=== PATIENT | female | born 1990 | race Caucasian/White ===

== ENCOUNTER 2018-08-08 18:36 | Day surgery (SDC) | payer SELFPAY ==
[2018-08-08 19:11] VITALS: BP 130/80; TEMP 99; BMI 31.7
[2018-08-08 19:59] LABS: Amnisure Internal Control QC ACCEPTABLE (ACCEPTABLE); Amnisure Test No Membranes Rupture (No Rupture)
--- NOTE | 2018-08-08 20:43 | PDOC.LDHP ---
Labor and Delivery H&P Chief complaint: contractions, loss of fluid, decreased movement HPI: 28 y/o at 40w0d presents for a checkup. She has not been seen since 34 weeks after a disagreement with [facility] office staff. Her biggest complaint is pelvic pressure, especially with activity. She reports she has felt the baby's hiccups today but movement was slower than usual. She has also had some irregular contractions and increased discharge but doesn't think she's in labor. She wants to know if she can be induced today. ROS neg for HEENT, cv, pulm, gi, gu, neuro, psych, skin, musculoskeletal, or constitutional symptoms other than mentioned above. OB History Details: 1 prior term after induction at 39 weeks. Weight 9+ lbs. Current complications: other (no PNC since 34 weeks) Past Medical History: None Current medications: pre- vitamins Previous surgical history: other ([place] teeth extraction) Allergies/Adverse Reactions: Allergies Allergy/AdvReac Type Severity Reaction Status Date / Time azithromycin Allergy Intermediate Hives Verified 08/08/18 19:05 penicillin G Allergy Intermediate Hives Verified 08/08/18 19:05 Social history: none - Physical Exam Vital signs reviewed and normal: yes General: NAD, resting Lungs: nonlabored breathing Abdomen: gravid Extremeties: pitting edema (1+) FHT: category 1 (130s, mod variability, + accels, no decels) [place] contractions every: irregular - Vaginal Exam cm dilated: 3 Effacement: 25% Station: -3 - Assessment 28 y/o at 40w0d with no e/o active labor or SROM. status reassuring with reactive NST. - Plan -: Encouraged to be seen in clinic but if she is not seen, I recommend she return in 1 week if still for evaluation of fetus (at 41 weeks). D/c home with strict precautions. GBS done and pending (PCN allergic).
== END 2018-08-08 20:30 | disposition home or self-care (01) ==
LOC: L&D/OP 18:36
PROVIDERS: ATTEND Obstetrics & Gynecology
DX: O47.1 False labor at or after 37 completed weeks of gestation (principal); O36.8130 Decreased fetal movements, third trimester, not applicable or unspecified; Z3A.40 40 weeks gestation of pregnancy
CPT/HCPCS: 84112; 87081; 87480; 87510; 87660; 99284

== ENCOUNTER 2018-08-15 12:23 | Day surgery (SDC) | payer SELFPAY ==
--- NOTE | 2018-08-15 13:10 | PDOC.FPROB ---
FMR OB H&P: HPI - History of Present Illness Chief Complaint: Told to come in because late term Indentification: 28 year old History of Present Illness: 28 year old at 41.0 wks by 1T u/s with BRET of 08/08/2018 presents with contractions which have now resolved. She states that yesterday around 11:30 pm the contractions were intense enough to keep her from sleeping. They were regular and happening every few minutes. This went on for about 12 hours. Since that time, the contractions have resolved. Patient states she has few irregular contractions currently. She denies vaginal bleeding, LoF. Patient endorses vaginal discharge that is milky white without any changes in since last week when she was checked by Dr. Landis for ruptured membranes. Patient states that she was told to come back today as she would be 41 wks. She has poor PNC. She saw Dr. William up until 34 weeks and then stopped seeing her. Primary Care Physician: CARL FMR OB H&P: Current - Care : 2 Para: 1001 Gestational age: 41.0 wks Due date: 08/08/2018 Dating Criteria: 1T u/s - OB Labs Blood type: A RH: negative Antibody Screen: negative HIV: negative RPR: negative HepBsAg: negative Rubella: immune GBS: negative FMR OB H&P: History - Past Medical History PMH: None - OB History OB History: Rh negative s/p rhogam on 03/11/2018 Poor PNC - Surgical History Sx History: [place] teeth - Family History Family History: Mother and father with HTN FMR OB H&P: Medications - Current Home Medications: Medication Instructions Recorded Confirmed Type Vit,Calc76/Iron/Folic 1 tablet PO DAILY 08/08/18 08/15/18 History [Pnv 29-1 Tablet] Ferrous Sulfate 325 mg PO DAILY 08/15/18 08/15/18 History Allergies/Adverse Reactions: Allergies Allergy/AdvReac Type Severity Reaction Status Date / Time azithromycin Allergy Intermediate Hives Verified 08/08/18 19:05 penicillin G Allergy Intermediate Hives Verified 08/08/18 19:05 FMR OB H&P: ROS - Review of Systems General: denies: fever/chills, weight/appetite/sleep changes, fatigue Eyes: denies: vision changes, scotomas ENT: denies: nasal congestion, rhinorrhea, sore throat Cardiovascular: denies: chest pain, palpitation, edema Respiratory: denies: cough, congestion, shortness of breath Gastrointestinal: denies: abdominal pain, cramping, nausea, vomiting, diarrhea, constipation Genitourinary (Female): reports: polyuria, vaginal discharge, contractions. denies: incontinence, dysuria, vaginal pain, vaginal bleeding, vaginal pressure Musculoskeletal: denies: pain Neurologic: denies: syncope, weakness, loss of counsciousness Hematologic/Lymphatic: denies: prolonged or excessive bleeding Psychological: denies: depression, anxiety FMR OB H&P: Vital Signs - Maternal Vital signs: BP 133/89 Pulse 103 Temp 98.6 F - Heart Tones Baseline: 140 Variability: moderate Acceleration: present Deceleration: absent Category: category 1 [place] contractions every: Irregular FMR OB H&P: Physical Exam - Physical Exam General: NAD HEENT: MMM, grossly normal vision, grossly normal hearing Neck: supple Heart: pulses present Deviation from normal: trace edema General: no respiratory distress Abdomen: soft, gravid, non-tender Musculoskeletal: pulses present Neurological: no tremor, no focal deficit Skin: no rash, capillary refill <2 seconds Lymphatic: no unusual bruising or bleeding Psychiatric: intact recent and remote memory, good judgement and insight, normal mood and affect FMR OB H&P: A/P - Problem List (1) Intrauterine Current Visit: Yes Status: Acute Code(s): Z34.90 - ENCNTR FOR SUPRVSN OF NORMAL , UNSP, UNSP TRIMESTER Assessment and Plan: 28 year old at 41 wks presents with contractions onset of yesterday which have since resolved. She resides in [place]. 1. Late term sIUP - Poor PNC; no care after 34 weeks - No complications in this per patient - Last cervical check last week was 01/27/-3; no change today - Few irregular contractions on monitor - Reactive NST - Will schedule induction with Pit 08/16/18 at 07:00; staffing issue currently and no evidence of labor/ jeopardy 2. Rhogam negative - S/p rhogam on 03/11/2018 Disposition: Stable. Consider d/c if not in active labor to come back for induction tomorrow Discussion: Date/Time: 08/15/18 2855 This H&P was discussed with Dr. Tarango who agrees with the above documentation and plan. OB Faculty note: Seen at beside, see handwritten note and dictation Signature: Vanda Nagel, PGY-2
[2018-08-15 13:11] VITALS: BP 124/75; TEMP 98.6; BMI 31.7
--- NOTE | 2018-08-15 14:06 | HP ---
DATE OF ADMISSION: 08/15/2018 TIME OF EVALUATION: 13:20 to 13:35. LOCATION: Labor and Delivery. This is a patient of Dr. William up until about 34 weeks and then she has not had care since about that time. EGA: 41.0. HISTORY OF PRESENT ILLNESS: In brief, this is a patient who was first evaluated by our resident team montessori teacher who evaluated the patient who arrived after the instructions from Dr. Michelle Landis to [facility] at 41 weeks and 0 days for possible induction to Labor and Delivery. She arrived here without any vaginal bleeding and some irregular contractions early in the morning at around 2:00 a.m., but they h ave since decreased. No history of vaginal bleeding and no leakage of fluid. There is no history of trauma or other complications. Once again, she has been seen by Dr. William up until about 34 weeks, but has not been seen by her since. She had a GBS drawn last time, which was negative. OB HISTORY: She has a prior vaginal delivery. Dating criteria is by first trimester ultrasound. LAB WORK: She is Rh negative and she received RhoGAM as indicated. PAST MEDICAL HISTORY: Negative. PAST SURGICAL HISTORY: [place] teeth. MEDICATIONS: vitamins. ALLERGIES: PENICILLIN and ZITHROMAX, which makes her "swell up." Also hives is reported. PHYSICAL EXAMINATION: VITAL SIGNS: Her first blood pressure was 133/89, but repeated was with systolic pressures of 120s w ith diastolics in the 70s. Pulse is 103 and she is afebrile. GENERAL: She is in no acute distress. ABDOMEN: Size consistent. On cervical examination, she is 3 cm dilated, only about 30% effaced and about -2 station. There is no gross evidence of vaginal bleeding or ruptured membranes. On monitor, she has a reactive nonstress test with moderate variability noted. There are irreg ular contractions and few contractions on tocodynamometer. ASSESSMENT: This is a patient who is a G2, P1 at 41 weeks and 0 days by sure dates who arrived to [facility] and Delivery for an attempt at induction. No evidence of true labor at this time and she has not made cervical change from her last evaluation, which is 3 cm at last check. PLAN: 1. Please note that this patient has a handwritten H and P also in the chart and this dictation is a ncillary. I evaluated the patient at bedside along with Dr. Vanda Nagel with the [facility]. 2. As the patient is not actively laboring, with a reactive nonstress test and no evidence of hypert ensive abnormality, I discussed with the patient the ability to bring her back tomorrow on 08/16/2018 for a trial of induction in the morning (Pitocin). 3. The plan for induction tomorrow morning is due to limited staffing and availability in Labor and Delivery today (1 free bed on the unit today). 4. I have discussed this with our nurse management team (Adrienne) and we are all in agreement that as t here is no acute need for intervention, the patient is likely low risk to continue until tomorrow, bu t we will attempt a trial of induction. 5. I have added her into the induction book for record and she is scheduled for tomorrow morning. 6. I have advised the patient that if she has increasing contractions, decreased movement, vag inal bleeding or evidence of rupture, then she needs to return and we will have availability to see h er as at that point it would no longer be an elective admission, but will be medically indicated due to spontaneous onset of labor. 7. No acute complication at this time. 8. Questions answered.
== END 2018-08-15 14:00 | disposition home or self-care (01) ==
LOC: L&D/OP 12:23
PROVIDERS: ATTEND Obstetrics & Gynecology
DX: O47.1 False labor at or after 37 completed weeks of gestation (principal); O48.0 Post-term pregnancy; Z3A.41 41 weeks gestation of pregnancy; Z88.0 Allergy status to penicillin; Z88.1 Allergy status to other antibiotic agents
CPT/HCPCS: 99282

== ENCOUNTER 2018-08-16 07:24 | Inpatient (IN) | payer OTHER, SELFPAY ==
[2018-08-16] MEDS ORDERED: Butorphanol Tartrate 1 MG/ML VIAL SLOW IVP PRN (07:53)
[2018-08-16] MEDS ORDERED: NS / Oxytocin 40 units/1000ml 1,000 ML IV PRN (07:53)
[2018-08-16] MEDS ORDERED: Ibuprofen 800 MG TAB PO PRN (07:53)
[2018-08-16] MEDS ORDERED: Promethazine HCl 25 MG/ML VIAL IM PRN ×2 (07:53→13:50)
[2018-08-16] MEDS ORDERED: Lidocaine 1% (PF) 30 ML VIAL SC PRN (07:53)
[2018-08-16] MEDS ORDERED: HYDROcodone/Acetaminophen 5/325 mg Tablet PO PRN ×2 (07:53)
[2018-08-16] MEDS ORDERED: NS w/ Oxytocin 10 units 500 ML IV SCH (08:00)
[2018-08-16] MEDS: Lactated Ringer's 1,000 ML IV SCH ×2 (08:12→12:52)
[2018-08-16 08:46] LABS: Mean Corpuscular HGB CONC 34.7 g/dL (32.0-36.0); Mean Corpuscular Hemoglobin 32.1 pg (27.0-31.0); Mean Corpuscular Volume 92.5 fL (78.0-98.0); Mean Platelet Volume 9.1 fL (7.4-10.4); Platelet Count 163 thou/uL (130-400); Red Blood Cell (RBC) Count 3.75 mill/uL (4.20-5.40); White Blood Cell (WBC) Count 8.7 thou/uL (4.8-10.8)
[2018-08-16 08:56] VITALS: BMI 31.7
--- NOTE | 2018-08-16 08:57 | HP ---
DATE OF ADMISSION: 08/16/2018 LOCATION: Labor and Delivery TIME OF EVALUATION: 0757. REASON FOR ARRIVAL: This patient arrives in Labor and Delivery for scheduled induction of labor. HISTORY OF PRESENT ILLNESS: In brief, this is a patient that was evaluated in Labor and Delivery yes terday dated 08/15/2018. When she presented in Labor and Delivery for induction, although she was no t officially scheduled for induction. Due to staffing issues (full labor and delivery unit) she was scheduled this morning for Pitocin. In brief, she is a 28-year-old G2, P1 at 41 weeks by first trim daniel ultrasound with a due date of 08/08/2018, who presents with irregular contractions. She was ev aluated yesterday and found to be 3 cm dilated, which is basically unchanged from her previous admiss ion. She was observed in Labor and Delivery yesterday and told to return today due to staffing and n ow presents herself for induction. She was seen by Dr. William previously until 34 weeks, but then st opped seeing her from that point forward. PAST MEDICAL HISTORY: Otherwise, negative. OB HISTORY: She has had a prior vaginal delivery. PAST SURGICAL HISTORY: [place] teeth. PHYSICAL EXAMINATION: VITAL SIGNS: Stable and she is afebrile. She is normotensive. GENERAL: Clinically, she is in no acute distress. ABDOMEN: Soft and nontender. Size is consistent with dates on the uterine exam. Estimated we ight about 6-1/2 pounds. CERVICAL EXAM: Pending as the patient just arrived in Labor and Delivery, and we will do a cervical exam once she is fully admitted and prepared for the exam. On monitor, heart tones are reactive in the 130s to 140s. Irregular contractions and irr itability on tocodynamometer. ASSESSMENT: This is a patient who is a 2, para 1 at 41 weeks and 1 day who presents for sche duled induction of labor for Pitocin. Once again, she was seen yesterday, but due to staffing issues , was brought back this morning for scheduled induction. PLAN: 1. Pitocin induction per protocol. 2. Pain medications per routine. 3. Confirm GBS status. 4. Await labor progress. 5. CREDIT UNION FIELD EXAMINER Hospitalist team to assume care as the patient has not seen her regular provider since 34 weeks. 6. Once again for full details on the first evaluation dated on 08/15/2018, please turn to that dict ation dated that date.
[2018-08-16 09:39] LABS: Syphilis Antibody Nonreactive (Nonreactive); Syphilis Antibody Index 0.05 S/CO (<1.00 Non-Reactive)
[2018-08-16 09:39] LABS: HBSAg Index 0.18 S/CO (0-0.99); HIV (1/2) Antibody/Antigen Non-Reactive (NonReactive); HIV 1/2 INDEX 0.12 S/CO (<1.00); Hep B Surf Ag Non-Reactive S/CO (NonReactive)
[2018-08-16] MEDS ORDERED: Fentanyl 4 mcg/Bup 0.1% Cadd 100 ML ONE (12:14)
[2018-08-16] MEDS ORDERED: Eucerin (Mineral Oil/Petrolatum,White) 30 gm Jar TOP PRN (13:50)
[2018-08-16] MEDS ORDERED: Ondansetron HCl/PF 4 MG/2 ML Vial IVP PRN ×2 (13:50→18:21)
[2018-08-16] MEDS ORDERED: ePHEDrine/0.9% NaCl/PF SYRINGE 50 mg/10 ml SLOW IVP PRN (13:50)
[2018-08-16] MEDS ORDERED: Naloxone HCl 0.4 mg/ml Vial IVP PRN ×2 (13:50)
[2018-08-16] MEDS ORDERED: diphenhydrAMINE 50 MG/ML VIAL IVP PRN (13:50)
[2018-08-16] MEDS ORDERED: Lactated Ringer's 500 ML IV PRN (13:50)
[2018-08-16] MEDS ORDERED: Acetaminophen 325 MG TAB PO PRN (13:50)
[2018-08-16] MEDS ORDERED: Communication Order-Pharmacy FS SCH (14:00)
[2018-08-16] MEDS ORDERED: Fentanyl 4 mcg/Bupivacaine 0.1% Cassette 100 ML EPIDURAL SCH (14:00)
[2018-08-16] MEDS ORDERED: Lidocaine 2% MPF 10 ML AMP (For Epidural Use) ONE (15:00)
[2018-08-16] MEDS ORDERED: Lanolin Ointment 7 GM TUBE TOP PRN (18:21)
[2018-08-16] MEDS ORDERED: Benzocaine/Menthol 20-0.5% 60 ML CAN TOP PRN (18:21)
[2018-08-16] MEDS ORDERED: NS / Oxytocin 40 units/1000ml 1,000 ML IV SCH (18:21)
[2018-08-16] MEDS ORDERED: Bisacodyl 10 MG SUPP PR PRN (18:21)
[2018-08-16] MEDS ORDERED: Milk Of Magnesia 30 ML UDCUP PO PRN (18:21)
[2018-08-16] MEDS ORDERED: Preparation H Ointment 28 GM TUBE PR PRN (18:21)
[2018-08-16] MEDS: Docusate Calcium (SURFAK) 240 MG CAP PO SCH (21:52)
[2018-08-16] MEDS: Ibuprofen 800 MG TAB PO SCH (21:52)
[2018-08-17] MEDS: Ibuprofen 800 MG TAB PO SCH ×3 (06:13→21:56)
--- NOTE | 2018-08-17 07:23 | PDOC.OPDEL ---
OB Operative/Delivery Note Delivery Dr/Surgeon: Jerrell Nagel Pre-Delivery Diagnosis: elective induction Procedure/Post Delivery Dx: spontaneous vaginal delivery Weeks gestation: 41 (41.1 wks) Anesthesia: epidural - Findings A Sex: male - 1 min: 9 - 5 min: 9 - Additional Findings/Plan Placenta delivered: spontaneous Repaired Obstetrical Laceration: vaginal (hemostatic right vaginal laceration) Estimated blood loss: QBL 459 mL Compilations/Other Findings: Delivering Physician: Shona Attending: Jerrell Procedure: Spontaneous Vaginal Delivery Anesthesia: Epidural Pre-op Diagnosis: 1. Late-term intrauterine in labor 2. Rh negative s/p rhogam on 03/11/2018 Post-op Diagnosis: 1. Term intrauterine , delivered 2. same as above Indications: A 28 y/o female presented to L&D for IOL for late-term at 41.1 wks Delivery Note: This is 28 yo F @ 41.1 wks who delivered a viable M infant at 16:02 on 08/16/2018. Following an uneventful antepartum course, a vigorous male was delivered over an intact perineum in the occipitoanterior position. Anterior shoulder and then remainder of the body delivered. No nuchal cord. The head was held down and mouth and nares were bulb suctioned. Cord clamped and cut and cord blood collected. Placenta delivered intact with a 3 vessel cord noted. Fundal massage was performed and the fundus was firm. The cervix and vagina were inspected and a hemostatic right vaginal side wall lesion was noted. No repair was necessary. There was a left periurethral abrasion. went to nursery in good condition for routine care. Apgars were 9/9 at 1 & 5 minutes, respectively. Patient tolerated delivery well and went to after routine recovery/care. Post delivery plan: routine recovery
--- NOTE | 2018-08-17 07:28 | PDOC.PP ---
Post Progress Note Post Day #: 1 Subjective: Patient doing well this AM. No significant overnight events. Patient tolerating PO and ambulating without difficulty. PO intake tolerated: yes Flatus: yes Ambulation: yes Vital Signs (12 hours) Temp Pulse Resp BP Pulse Ox 08/17/18 04:14 97.9 F 79 18 124/62 08/17/18 02:20 97.7 F 78 18 136/60 97 08/16/18 20:53 98.2 F 100 18 127/68 98 Weight Weight 94.801 kg - Physical Examination General: NAD Respiratory: non-labored breathing Abdominal: lochia (scant this morning. Several blood clots expressed yesterday.) Fundus firm & at: 2 cm above umbilicus Skin: no rash Neurological: no gross focal deficits Psychiatric: A&Ox3, normal affect Result Diagrams: 08/16/18 08:23 Additional Labs: Post Labs Blood Type A POSITIVE 08/16/18 14:20 Hep Bs Antigen Non-Reactive S/CO (NonReactive) 08/16/18 08:44 (1) Vaginal delivery Code(s): O80 - ENCOUNTER FOR FULL-TERM UNCOMPLICATED DELIVERY Status: Acute - Assessment/Plan 28 year old at 41.1 wks delivered LGA on 08/16/2018 via . 1. Late term , delivered - - One hemostatic vaginal laceration on right not requiring repair - Question whether or not Rh negative. Has been in past pregnancies but blood type and screen twice during this hospitalization shows Rh positive. Will call blood bank and try to figure out false positive rate. Will still give patient rhogam PP as she plans on having more children and current is Rh positive. Patient concerned since she knows she has had blood work in the past that confirms Rh negative status - Pending rhogam and 24 hour bili for baby, will consider 24 hour discharge. - Pending entry level sales consultant Dispo: Stable. Possible d/c today. <Vanda Nagel - Last Filed: 08/17/18 07:26> Vital Signs (12 hours) Temp Pulse Resp BP Pulse Ox 08/17/18 04:14 97.9 F 79 18 124/62 08/17/18 02:20 97.7 F 78 18 136/60 97 08/16/18 20:53 98.2 F 100 18 127/68 98 Weight Weight 209 lb Result Diagrams: 08/16/18 08:23 Additional Labs: Post Labs Blood Type A POSITIVE 08/16/18 14:20 Hep Bs Antigen Non-Reactive S/CO (NonReactive) 08/16/18 08:44 <Osvaldo Allan - Last Filed: 08/17/18 08:41> Attending Addendum - Attending Addendum Date/Time: 08/17/18 0841 I personally evaluated the patient and discussed the management with Dr. Nagel I agree with the History, Examination, Assessment and Plan documented above with any addition or exceptions noted below. will need Rhogam before discharge. <Osvaldo Allan - Last Filed: 08/17/18 08:41>
[2018-08-17] MEDS: Docusate Calcium (SURFAK) 240 MG CAP PO SCH ×2 (08:55→21:56)
[2018-08-17] MEDS: Prenatal Vitamin 1 TAB PO SCH (08:55)
[2018-08-17] MEDS ORDERED: Adacel (T-DAP) 0.5 ML VIAL IM ONE (09:00)
--- NOTE | 2018-08-17 09:21 | PDOC.EVN ---
Event Note - Event Note Event Note: Technical Trainer note: Blood type note: Updated on RH status. Here, patient is RH pos...but on record, was RH negative in care. This may be a weak D (Du) pos that is identified. ACOG states she should be treated as RH negative in this case and administer Rhogam. Patient desires rhogam.
[2018-08-17] MEDS: Ferrous Sulfate 325 MG TAB PO SCH ×2 (10:17→17:29)
[2018-08-18] MEDS: Ibuprofen 800 MG TAB PO SCH (06:06)
--- NOTE | 2018-08-18 06:42 | PDOC.PP ---
Post Progress Note Post Day #: 2 Subjective: Doing well PO intake tolerated: yes Flatus: yes Ambulation: yes Vital Signs (12 hours) Temp Pulse Resp BP Pulse Ox 08/17/18 19:42 98.2 F 93 18 137/59 L 97 Weight Weight 209 lb - Physical Examination General: NAD Cardiovascular: no m/r/g Respiratory: clear to auscultation bilaterally Abdominal: + bowel sounds, lochia, no distention Extremities: negative homans (B) Neurological: no gross focal deficits Psychiatric: A&Ox3, normal affect Result Diagrams: 08/16/18 08:23 Additional Labs: Post Labs Blood Type A POSITIVE 08/16/18 14:20 Hep Bs Antigen Non-Reactive S/CO (NonReactive) 08/16/18 08:44 (1) Vaginal delivery Code(s): O80 - ENCOUNTER FOR FULL-TERM UNCOMPLICATED DELIVERY Status: Acute - Assessment/Plan PPD 2: Doing well. Patient with blood type of RH negative but RH pos here. Rhogam given for conservative care. Likely home today as stable on PPD2. F/U in 3 weeks
[2018-08-18 08:10] VITALS: BP 131/63; TEMP 97.5
[2018-08-18] MEDS: Prenatal Vitamin 1 TAB PO SCH (08:12)
[2018-08-18] MEDS: Ferrous Sulfate 325 MG TAB PO SCH (08:12)
[2018-08-18] MEDS: Docusate Calcium (SURFAK) 240 MG CAP PO SCH (08:12)
== END 2018-08-18 12:20 | disposition home or self-care (01) | DRG 806 ==
LOC: L&D 07:24 → 3SE 20:53
PROVIDERS: ADMIT Obstetrics & Gynecology; ATTEND Obstetrics & Gynecology
PROC: 3E033VJ Introduction of Other Hormone into Peripheral Vein, Percutaneous Approach (ICD-10-PCS; principal; 2018-08-16)
PROC: 10E0XZZ Delivery of Products of Conception, External Approach (ICD-10-PCS; 2018-08-16)
DX: O48.0 Post-term pregnancy (principal); O71.4 Obstetric high vaginal laceration alone; Z37.0 Single live birth; Z3A.41 41 weeks gestation of pregnancy
CPT/HCPCS: 36415; 51702; 85027; 86780; 86850; 86900; 86901; 87340; 87389; 90384; 96372; J2001; J2405

== ENCOUNTER 2019-12-06 10:09 | Inpatient (IN) | payer OTHER ==
[2019-12-06 10:47] VITALS: BMI 34.4
[2019-12-06] MEDS: Lactated Ringer's 1,000 ML IV SCH ×2 (10:50→12:17)
[2019-12-06] MEDS ORDERED: Misoprostol 200 MCG TAB PR PRN (11:19)
[2019-12-06] MEDS ORDERED: Ibuprofen 800 MG TAB PO PRN (11:19)
[2019-12-06] MEDS ORDERED: HYDROcodone/Acetaminophen 5/325 mg Tablet PO PRN ×4 (11:19→19:13)
[2019-12-06] MEDS ORDERED: Butorphanol Tartrate 1 MG/ML VIAL SLOW IVP PRN (11:19)
[2019-12-06] MEDS ORDERED: Promethazine HCl 25 MG/ML VIAL IM PRN ×2 (11:19→19:13)
[2019-12-06] MEDS ORDERED: NS / Oxytocin 40 units/1000ml 1,000 ML IV PRN (11:19)
[2019-12-06] MEDS ORDERED: Ondansetron PF 4 MG/2 ML Vial IVP PRN ×2 (11:19→19:13)
[2019-12-06] MEDS ORDERED: Carboprost 250 MCG/ML AMP IM PRN (11:19)
[2019-12-06] MEDS ORDERED: Diphenoxylate HCl/Atropine Tablet PO PRN ×2 (11:19)
[2019-12-06] MEDS ORDERED: hydrALAZINE 20 MG/ML VIAL SLOW IVP PRN ×2 (11:19→19:13)
[2019-12-06] MEDS ORDERED: Lidocaine 1% (PF) 30 ML VIAL SC PRN (11:19)
--- NOTE | 2019-12-06 11:26 | PDOC.LDHP ---
Labor and Delivery H&P HPI: 29 y/o at 38 and 5/7 weeks who presents to clinic noting painful CTXs at home x 2 days. Cervix went form 2cm/30% to 5CM/70% over the last week. Her BP in clinic 142/90. BMI today 35.5 (Obesity in ). NL sugar testing. Hx of 10 pound previous baby. weight was 8# 14 oz one week ago - LGA Fetus suspected now over 9 pounds. Hx of hemorrhage reported with [place] [facility] physicians last time. Current gestational age (weeks): 38 Due date: 12/15/19 Grav: 3 Para: 2 Current complications: gestational hypertension, other (LGA Fetus. Advanced Cerical Dilitation. Patient lives [place] of town.) Abnormal US findings: Yes (LGA Fetus.) Current medications: pre-ivory vitamins Previous surgical history: none Allergies/Adverse Reactions: Allergies Allergy/AdvReac Type Severity Reaction Status Date / Time amoxicillin Allergy Intermediate Hives Verified 12/06/19 11:19 azithromycin Allergy Intermediate Hives Verified 12/06/19 11:19 penicillin G Allergy Intermediate Hives Verified 12/06/19 11:19 - Physical Exam Vital signs reviewed and normal: yes General: NAD, resting Heart: RRR Lungs: CTAB Abdomen: gravid Extremeties: no edema FHT: category 1 - Vaginal Exam cm dilated: 5 Effacement: 75% Station: -2 - Assessment L&D Assessment: term patient in labor - Plan Plan: admit to L&D, labor augmentation if indicated
[2019-12-06] MEDS ORDERED: NS w/ Oxytocin 10 units 500 ML IV SCH ×2 (11:30)
[2019-12-06 11:35] LABS: Hemoglobin 10.9 g/dL (12.0-16.0); Mean Corpuscular HGB CONC 32.8 g/dL (32.0-36.0); Mean Corpuscular Volume 85.4 fL (78.0-98.0); Mean Platelet Volume 10.9 fL (7.4-10.4); Platelet Count 172 thou/uL (130-400); RBC Distribution Width 12.9 % (11.5-14.5); Red Blood Cell (RBC) Count 3.88 mill/uL (4.20-5.40); White Blood Cell (WBC) Count 10.8 thou/uL (4.8-10.8)
[2019-12-06] MEDS ORDERED: Calcium Carbonate 500 MG ChewTAB PO PRN (12:08)
[2019-12-06 12:16] LABS: HBSAg Index 0.25 S/CO (0-0.99); Hep B Surf Ag Non-Reactive S/CO (NonReactive)
[2019-12-06 12:17] LABS: Syphilis Antibody Nonreactive (Nonreactive); Syphilis Antibody Index 0.12 S/CO (<1.00 Non-Reactive)
[2019-12-06] MEDS ORDERED: Fentanyl 4 mcg/Bup 0.1% Cadd 100 ML ONE (12:49)
[2019-12-06] MEDS ORDERED: Bupivacaine PF 0.5% 30 ML VIAL ONE (13:39)
[2019-12-06] MEDS ORDERED: Lidocaine 2% MPF 10 ML AMP (For Epidural Use) ONE (13:39)
[2019-12-06] MEDS ORDERED: Bupivacaine 0.25% HCL 30 ML VIAL ONE (13:39)
[2019-12-06] MEDS ORDERED: Fentanyl 100 MCG/2 ML VIAL ONE (17:36)
[2019-12-06] MEDS ORDERED: NS / Oxytocin 40 units/1000ml 1,000 ML IV SCH (19:13)
[2019-12-06] MEDS ORDERED: Preparation H Ointment 28 GM TUBE PR PRN (19:13)
[2019-12-06] MEDS ORDERED: diphenhydrAMINE 25 MG CAP PO PRN (19:13)
[2019-12-06] MEDS ORDERED: Methylergonovine 0.2 MG/ML VIAL IM PRN (19:13)
[2019-12-06] MEDS ORDERED: Zolpidem Tartrate 5 MG TAB PO PRN (19:13)
[2019-12-06] MEDS ORDERED: Milk Of Magnesia 30 ML UDCUP PO PRN (19:13)
[2019-12-06] MEDS ORDERED: Benzocaine-Menthol 82.5 ML CAN TOP PRN (19:13)
[2019-12-06] MEDS ORDERED: Lanolin Ointment 7 GM TUBE TOP PRN (19:13)
[2019-12-06] MEDS ORDERED: Bisacodyl 10 MG SUPP PR PRN (19:13)
[2019-12-06] MEDS ORDERED: NS / Oxytocin 40 units/1000ml 1,000 ML ONE (19:32)
[2019-12-06] MEDS: Docusate Calcium (SURFAK) 240 MG CAP PO SCH (21:43)
[2019-12-07] MEDS: Ibuprofen 800 MG TAB PO SCH ×4 (02:05→22:06)
[2019-12-07 06:07] LABS: Hemoglobin 8.9 g/dL (12.0-16.0); Mean Corpuscular Hemoglobin 27.5 pg (27.0-31.0); Mean Platelet Volume 10.9 fL (7.4-10.4); Platelet Count 151 thou/uL (130-400); RBC Distribution Width 12.9 % (11.5-14.5); Red Blood Cell (RBC) Count 3.22 mill/uL (4.20-5.40); White Blood Cell (WBC) Count 15.5 thou/uL (4.8-10.8)
[2019-12-07] MEDS ORDERED: Measles/Mumps/Rubella 10 MCG/0.5 ML VIAL SC ONE (09:00)
[2019-12-07] MEDS ORDERED: Varicella virus, LIVE 0.5 ML VIAL SC ONE (09:00)
[2019-12-07] MEDS ORDERED: Adacel (T-DAP) 0.5 ML SYRINGE IM ONE (09:00)
[2019-12-07] MEDS: Prenatal Vitamin 1 TAB PO SCH (11:03)
[2019-12-07] MEDS: Docusate Calcium (SURFAK) 240 MG CAP PO SCH ×2 (11:03→22:05)
[2019-12-07] MEDS: Ferrous Sulfate 325 MG TAB PO SCH ×2 (11:04→22:06)
--- NOTE | 2019-12-07 12:46 | PDOC.PP ---
Post Progress Note Post Day #: 1 PO intake tolerated: yes Ambulation: yes Vital Signs (12 hours) Temp Pulse Resp BP Pulse Ox 12/07/19 11:35 97.7 F 93 16 112/69 12/07/19 08:15 98 12/07/19 07:50 97.9 F 88 16 105/68 98 12/07/19 05:00 98.2 F 92 111/61 Weight Weight 227 lb - Physical Examination General: NAD Cardiovascular: no m/r/g, RRR Respiratory: clear to auscultation bilaterally, non-labored breathing Abdominal: + bowel sounds, lochia, no distention, appropriately TTP Extremities: negative homans (B) Skin: CS incision dry & intact, no rash Neurological: no gross focal deficits Psychiatric: A&Ox3, normal affect Result Diagrams: 12/07/19 05:19 Additional Labs: Post Labs Blood Type A POSITIVE 12/06/19 10:57 Hep Bs Antigen Non-Reactive S/CO (NonReactive) 12/06/19 10:57
--- NOTE | 2019-12-08 03:27 | DN ---
DATE OF PROCEDURE: 12/06/2019 TIME OF SERVICE: At 1741 central standard time. PREOPERATIVE DIAGNOSIS: Intrauterine at 38 weeks and 5 days with spontaneous onset of labor as well as large for gestational age fetus suspected. POSTOPERATIVE DIAGNOSIS: Intrauterine at 38 weeks and 5 days with spontaneous onset of labor as well as large for gestational age fetus suspected. PROCEDURES: Spontaneous vaginal delivery over intact perineum. FINDINGS: Viable male weighing 4283 g or 9 pounds 7 ounces. Apgars of 8 and 9. QUANTITATIVE BLOOD LOSS: 992 mL. COMPLICATIONS: None. PROCEDURE IN DETAIL: The patient presented to [facility] where she was admitted to the labor and delivery service. The patient underwent a normal and uneventful labor with normal cervical dilatation until she was found to be completely dilated. She was then allowed to push and was able to bring the baby down and delivered the baby in a vertex presentation without difficulties. Once the head delivered in occiput anterior position, the shoulders followed spontaneously along with the rest of the baby's body. Once out the baby's mouth and nose were bulb suctioned. The cord was clamped and cut and baby was handed to waiting attendants. Cord blood was collected. Gentle fundal massage was performed and the placenta delivered intact without problems. Hemostasis was assured. Quantitative blood loss was calculated. Inspection of the cervix, vaginal vault, and perineum did not reveal any lacerations needing suturing. Once again, hemostasis was within normal limits and the patient was allowed to recover in the labor and delivery room. Baby went to nursery. Job ID: [id number]
[2019-12-08] MEDS: Ibuprofen 800 MG TAB PO SCH (05:37)
[2019-12-08 08:06] VITALS: BP 120/74; TEMP 98.2
[2019-12-08] MEDS: Docusate Calcium (SURFAK) 240 MG CAP PO SCH (10:03)
[2019-12-08] MEDS: Ferrous Sulfate 325 MG TAB PO SCH (10:03)
[2019-12-08] MEDS: Prenatal Vitamin 1 TAB PO SCH (10:04)
[2019-12-08] MEDS ORDERED: FLU VACC QS2019-20(6MOS UP)/PF 60 MCG/0.5 ML SYRINGE IM ONE (12:00)
== END 2019-12-08 13:40 | disposition home or self-care (01) | DRG 807 ==
LOC: L&D 10:09 → 3SW 20:46
PROVIDERS: ADMIT Obstetrics & Gynecology; ATTEND Obstetrics & Gynecology
PROC: 10E0XZZ Delivery of Products of Conception, External Approach (ICD-10-PCS; principal; 2019-12-07)
DX: O36.63X0 Maternal care for excessive fetal growth, third trimester, not applicable or unspecified (principal); Z37.0 Single live birth; O13.4 Gestational [pregnancy-induced] hypertension without significant proteinuria, complicating childbirth; Z88.0 Allergy status to penicillin; Z88.1 Allergy status to other antibiotic agents; Z3A.38 38 weeks gestation of pregnancy
CPT/HCPCS: 36415; 51702; 85027; 86780; 86850; 86900; 86901; 87340; J2001; J2405; J2590; J3010; J3490; S0020

== ENCOUNTER 2023-03-01 10:08 | Outpatient (CLI) | payer OTHER | END 2023-03-01 10:09 | disposition home or self-care (01) | LOC: BICRAD 10:08 | PROVIDERS: ATTEND Internal Medicine Rheumatology | DX: M46.1 Sacroiliitis, not elsewhere classified (principal) | CPT/HCPCS: 72202 ==